=== PATIENT | male | born 1970 | race Caucasian/White ===

== ENCOUNTER 2021-02-12 19:01 | Emergency (ER) | payer SELFPAY ==
[2021-02-12] MEDS ORDERED: Acetaminophen 500 MG TAB ONE (19:22)
[2021-02-13 13:12] LABS: SARS-CoV-2 PCR by NAA DETECTED (NotDetected)
== END 2021-02-12 20:50 | disposition home or self-care (01) ==
LOC: BURERS 19:01
DX: U07.1 COVID-19 (principal); F17.220 Nicotine dependence, chewing tobacco, uncomplicated
CPT/HCPCS: 99283; U0003; U0005

== ENCOUNTER 2021-05-14 21:22 | Emergency (ER) | payer SELFPAY ==
[2021-05-14] MEDS ORDERED: Bacitracin 1 PK ONE (22:03)
[2021-05-14] MEDS ORDERED: Sulfameth/Trimethoprim DS 800-160mg TAB ONE (22:09)
[2021-05-14] MEDS ORDERED: Ibuprofen 800 MG TAB ONE (22:15)
== END 2021-05-14 22:10 | disposition home or self-care (01) ==
LOC: BURERS 21:22
DX: L03.113 Cellulitis of right upper limb (principal); F17.220 Nicotine dependence, chewing tobacco, uncomplicated
CPT/HCPCS: 99283